=== PATIENT | female | born 1985 | race Caucasian/White ===

== ENCOUNTER 2016-09-26 10:13 | Emergency (ER) | payer MEDICAID ==
[2016-09-26 12:10] VITALS: BP 116/81
== END 2016-09-26 12:10 | disposition home or self-care (01) ==
LOC: ED 10:13
DX: J45.901 Unspecified asthma with (acute) exacerbation (principal); R10.2 Pelvic and perineal pain; R39.15 Urgency of urination; R35.0 Frequency of micturition
CPT/HCPCS: J7512; J7613; J7644

== ENCOUNTER 2016-10-25 07:53 | Emergency (ER) | payer MEDICAID ==
[~2016-10-25] VITALS: Ht 165.1 cm; Wt 63.5 kg
[2016-10-25 10:47] VITALS: BP 108/69
== END 2016-10-25 10:45 | disposition home or self-care (01) ==
LOC: ED 07:53
DX: R06.02 Shortness of breath (principal); J45.909 Unspecified asthma, uncomplicated
CPT/HCPCS: J7512; J7613; J7620; J7644; Q0092

== ENCOUNTER 2016-12-16 22:01 | Emergency (ER) | payer MEDICAID ==
[2016-12-16 23:11] VITALS: BP 134/93
== END 2016-12-16 23:11 | disposition home or self-care (01) ==
LOC: ED 22:01
DX: L60.0 Ingrowing nail (principal)
CPT/HCPCS: J2001

== ENCOUNTER 2017-02-20 16:22 | Emergency (ER) | payer MEDICAID ==
[~2017-02-20] VITALS: Ht 165.1 cm; Wt 65.8 kg
[2017-02-20 17:40] LABS: UA SPECIFIC GRAVITY >=1.030 (1.005-1.035); microscopic required? YES; urine erythrocyte TRACE (NEGATIVE)
[2017-02-20 18:24] VITALS: BP 131/78
== END 2017-02-20 20:10 | disposition home or self-care (01) ==
LOC: ED 16:22
PROVIDERS: Emergency Medicine
DX: R10.2 Pelvic and perineal pain (principal); R30.0 Dysuria; J45.909 Unspecified asthma, uncomplicated
CPT/HCPCS: 87491; 87591; J1885

== ENCOUNTER 2018-08-20 22:41 | Emergency (ER) | payer MEDICAID ==
[~2018-08-20] VITALS: Ht 165.1 cm; Wt 61.2 kg
[2018-08-20 22:57] VITALS: Ht 165.1 cm; Wt 61.2 kg
[2018-08-21 01:05] VITALS: BP 110/82
== END 2018-08-21 01:05 | disposition home or self-care (01) ==
LOC: ED 22:41
DX: O99.511 Diseases of the respiratory system complicating pregnancy, first trimester (principal); O26.891 Other specified pregnancy related conditions, first trimester; J45.909 Unspecified asthma, uncomplicated; I83.91 Asymptomatic varicose veins of right lower extremity; Z3A.13 13 weeks gestation of pregnancy; Z98.890 Other specified postprocedural states
CPT/HCPCS: J7613; Q0092

== ENCOUNTER 2018-09-06 20:42 | Emergency (ER) | payer MEDICAID ==
[~2018-09-06] VITALS: Ht 154.9 cm; Wt 60.3 kg
[2018-09-06 20:46] VITALS: Ht 154.9 cm; Wt 60.3 kg
[2018-09-07 00:07] VITALS: BP 105/72
== END 2018-09-07 00:08 | disposition home or self-care (01) ==
LOC: ED 20:42
DX: O26.892 Other specified pregnancy related conditions, second trimester (principal); J45.901 Unspecified asthma with (acute) exacerbation; Z3A.17 17 weeks gestation of pregnancy; Z98.890 Other specified postprocedural states
CPT/HCPCS: J7512; J7620

== ENCOUNTER 2018-09-19 15:36 | Emergency (ER) | payer MEDICAID ==
[2018-09-19 18:48] VITALS: BP 110/65
== END 2018-09-19 18:48 | disposition home or self-care (01) ==
LOC: ED 15:36
DX: O99.512 Diseases of the respiratory system complicating pregnancy, second trimester (principal); J45.901 Unspecified asthma with (acute) exacerbation; Z3A.20 20 weeks gestation of pregnancy
CPT/HCPCS: J7512; J7613